=== PATIENT | female | born 1940 | race Two or more races ===

== ENCOUNTER 2018-09-16 11:13 | Emergency (ER) | payer OTHER ==
[~2018-09-16] VITALS: Ht 162.6 cm; Wt 71.7 kg
[~2018-09-16 11:13] MED LIST: PROCARDIA XL PO
== END 2018-09-16 21:50 | disposition home or self-care (01) ==
LOC: ER 11:13
DX: K52.89 Other specified noninfective gastroenteritis and colitis (principal)

== ENCOUNTER 2018-09-18 15:17 | Outpatient (CLI) | payer OTHER | END 2018-09-18 15:21 | disposition home or self-care (01) | LOC: LAB 15:17 | DX: K52.89 Other specified noninfective gastroenteritis and colitis (principal) ==